=== PATIENT | male | born 1965 | race Caucasian/White ===

== ENCOUNTER 2017-10-28 19:23 | Observation (INO) | payer SELFPAY ==
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
[2017-10-28] MEDS ORDERED: NITRO-BID 2% UD PACKETS TOP ONE (19:34)
[2017-10-28] MEDS ORDERED: NITRO-BID 2% UD PACKETS ONE (19:41)
[2017-10-28] MEDS ORDERED: Sodium Chloride 0.9% 1000 ML 1,000 ML ONE ×2 (19:42→21:14)
[2017-10-28] MEDS ORDERED: Sodium Chloride 0.9% 1000 ML 1,000 ML IV SCH (19:45)
[2017-10-28 19:54] LABS: Lactic Acid 4.5 (0.4-2.0)
[2017-10-28] MEDS ORDERED: Ativan 1 MG PO ONE ×3 (19:59→22:20)
[2017-10-28 20:00] LABS: BASOPHIL % 0.2 % (0.0-0.4); Basophil (Absolute #) 0.01 (0-0.4); Eosinophil % 0.9 % (0.00-5.0); Eosinophil (Absolute #) 0.05 (0-0.5); Granulocyte Absolute (ANC) 3.06 (1.4-6.9); Granulocytes % 56.8 % (36.0-66.0); Hematocrit 44.1 % (42-50); Hemoglobin 14.8 gm/dl (12.5-18.0); Lymphocyte (Absolute #) 1.93 (1.0-4.6); Lymphocytes % 35.8 % (24.0-44.0); Mean Cell Volume 84.2 fl (78-100); Mean Corpuscular Hemoglobin 28.2 pg (26-32); Mean Corpuscular Hgb Concent. 33.6 g/dl (32-36); Mean Platelet Volume 9.6 fl (6-9.5); Monocyte (Absolute #) 0.34 (0.0-1.3); Monocytes % 6.3 % (0.0-12.0); Platelet Count 275 K/mm3 (150-450); Red Blood Count 5.24 M/mm3 (4.1-5.6); Red Cell Distribution Width 14.9 % (11.5-14.0); White Blood Count 5.4 K/mm3 (4.0-10.5)
[2017-10-28] MEDS ORDERED: PROTONIX 40 MG IV IV ONE ×2 (20:01→20:13)
[2017-10-28] MEDS ORDERED: Sodium Chloride 0.9% 1000 ML 1,000 ML IV STA (20:01)
[2017-10-28] MEDS ORDERED: Pepcid 20 MG VIAL IV ONE ×2 (20:02→20:13)
[2017-10-28] MEDS ORDERED: Ativan 1 MG ONE ×2 (20:13→22:19)
[2017-10-28 20:19] LABS: ALBUMIN 3.9 g/dL (3.4-5.0); ALKALINE PHOSPHATASE 69 U/L (46-116); AMYLASE 55 U/L (25-115); ANION GAP 23.7 MEQ/L (5-15); BLOOD UREA NITROGEN 8 mg/dL (9-20); CHLORIDE 105 mEq/L (98-107); CK-Creatinine Phosphokinase 100 U/L (39-308); Calcium 8.6 mg/dL (8.5-10.1); Creatinine 1 0.97 mg/dl (0.55-1.30); EST GLOMERULAR FILTRATION RATE > 60 ML/MIN; Glucose 108 MG/DL (70-110); LIPASE 98 U/L (73-393); MAGNESIUM 1.8 mg/dL (1.8-2.4); NT PRO BNP 13 pg/ml (0-125); Potassium 3.4 mEq/L (3.5-5.1); SGOT/AST 23 U/L (15-37); SGPT/ALT 34 U/L (12-78); SODIUM 144 mEq/L (136-145); Total Protein 8.3 gm/dL (6.4-8.2)
[2017-10-28 20:24] LABS: SALICYLATE < 2.8 mg/dl (2.8-20.0); TSH, 3RD Generation 0.352 mIU/L (0.358-3.740)
[2017-10-28] MEDS ORDERED: MORPHINE SULFATE 10 MG/ML IV ONE ×2 (20:25→23:22)
[2017-10-28 20:26] LABS: ACETAMINOPHEN < 2.0 ug/ml (10-30); TROPONIN < 0.017 ng/ml (0.000-0.056)
[2017-10-28] MEDS ORDERED: BENADRYL 50 MG/ML IV ONE ×2 (20:26→23:23)
[2017-10-28] MEDS ORDERED: BENADRYL 50 MG/ML ONE ×2 (20:36→23:31)
[2017-10-28] MEDS ORDERED: MORPHINE SULFATE 10 MG/ML ONE ×2 (20:36→23:32)
[2017-10-28] MEDS ORDERED: Ativan 2 MG/1 ML VIAL ONE (22:17)
[2017-10-28 22:58] LABS: Lactic Acid 4.3 (0.4-2.0)
[2017-10-28 23:23] LABS: Amphetamine,Urine NEG. (NEGATIVE); Barbiturate,Urine NEG. (NEGATIVE); Benzodiazepine,Urine NEG. (NEGATIVE); Cocaine,Urine NEG. (NEGATIVE); Methadone,Urine NEG. (NEGATIVE); Opiate,Urine POS. (NEGATIVE); PCP,Urine NEG. (NEGATIVE); THC,Urine NEG. (NEGATIVE)
[2017-10-28 23:26] LABS: Appearance CLEAR (CLEAR); Bacteria FEW /HPF (NEGATIVE); Bilirubin NEGATIVE (NEGATIVE); Blood 50 Ery/ul (0-5); Epithelial Cells RARE /HPF (FEW); Glucose NEGATIVE (NEGATIVE); Ketones NEGATIVE (NEGATIVE); Leukocyte Esterase NEGATIVE (NEGATIVE); Mucus SLIGHT /HPF (NEGATIVE); Nitrite NEGATIVE (NEGATIVE); Protein,Urine Dip TRACE (Negative); Specific Gravity 1.005 (1.005-1.025); Urobilinogen NORMAL mg/dL (0-1); WBC 0-2 /HPF (0-5)
[2017-10-29] MEDS ORDERED: MILK OF MAGNESIA 30 ML PO PRN (00:59)
[2017-10-29] MEDS ORDERED: NovoLIN R SQ PRN (00:59)
[2017-10-29] MEDS ORDERED: Ativan 1 MG PO PRN (00:59)
[2017-10-29] MEDS ORDERED: Zofran 4 MG/2 ML VIAL IV PRN ×2 (00:59)
[2017-10-29] MEDS ORDERED: Senokot-S Tablet PO PRN (00:59)
[2017-10-29] MEDS ORDERED: MAALOX ES 30 ML UNIT DOSE PO PRN (00:59)
[2017-10-29] MEDS ORDERED: MORPHINE SULFATE 2 MG INJ IV PRN (00:59)
[2017-10-29] MEDS ORDERED: TYLENOL 325 MG PO PRN (00:59)
[2017-10-29] MEDS ORDERED: MORPHINE SULFATE 10 MG/ML IV PRN (01:37)
[2017-10-29] MEDS: MORPHINE SULFATE 2 MG INJ IV PRN ×2 (03:02→05:13)
[2017-10-29 05:36] LABS: Lactic Acid 3.3 (0.4-2.0)
[2017-10-29 05:53] LABS: ALBUMIN 3.7 g/dL (3.4-5.0); ALKALINE PHOSPHATASE 62 U/L (46-116); ANION GAP 18.6 MEQ/L (5-15); BLOOD UREA NITROGEN 8 mg/dL (9-20); CHLORIDE 104 mEq/L (98-107); Calcium 7.8 mg/dL (8.5-10.1); Carbon Dioxide 22.6 mEq/L (21-32); Cholesterol 200 mg/dL (100-200); Creatinine 1 0.97 mg/dl (0.55-1.30); EST GLOMERULAR FILTRATION RATE > 60 ML/MIN; Glucose 106 MG/DL (70-110); HDL CHOLESTEROL 37 mg/dL (35-60); LDL, DIRECT 108 mg/dL (5-99); Potassium 3.9 mEq/L (3.5-5.1); Risk Ratio 5.4; SGOT/AST 19 U/L (15-37); SGPT/ALT 31 U/L (12-78); SODIUM 141 mEq/L (136-145); TRIGLYCERIDE 372 mg/dL (30-200); Total Protein 7.4 gm/dL (6.4-8.2)
[2017-10-29 06:03] LABS: BASOPHIL % 0.1 % (0.0-0.4); Basophil (Absolute #) 0.01 (0-0.4); Eosinophil % 0.5 % (0.00-5.0); Eosinophil (Absolute #) 0.04 (0-0.5); Granulocyte Absolute (ANC) 5.68 (1.4-6.9); Granulocytes % 72.4 % (36.0-66.0); Hematocrit 39.5 % (42-50); Hemoglobin 12.7 gm/dl (12.5-18.0); Lymphocyte (Absolute #) 1.47 (1.0-4.6); Lymphocytes % 18.7 % (24.0-44.0); Mean Cell Volume 86.8 fl (78-100); Mean Corpuscular Hemoglobin 27.9 pg (26-32); Mean Corpuscular Hgb Concent. 32.2 g/dl (32-36); Mean Platelet Volume 9.6 fl (6-9.5); Monocyte (Absolute #) 0.65 (0.0-1.3); Monocytes % 8.3 % (0.0-12.0); Platelet Count 214 K/mm3 (150-450); Red Blood Count 4.55 M/mm3 (4.1-5.6); White Blood Count 7.9 K/mm3 (4.0-10.5)
[2017-10-29] MEDS ORDERED: MORPHINE SULFATE 4 MG INJ IV PRN (08:46)
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
--- NOTE | 2017-10-29 09:14 | XRAY ---
Indication: Chest pain and short of breath. Elevated d-dimer. Multiple contiguous axial images obtained through the chest using 80 cc Isovue 370 contrast and PE protocol. Comparison: None There is satisfactory opacification of the pulmonary arteries. No filling defect or pulmonary embolus. Heart is not enlarged. Aorta is normal in course and caliber. No pathologic mediastinal/hilar lymphadenopathy. Small hiatal hernia. Examination of the lung parenchyma demonstrates mild/moderate bilateral dependent atelectasis. No suspicious pulmonary mass, infiltrate, consolidation, or effusion. Bony thorax intact. Limited upper abdomen demonstrates fatty liver and cholecystectomy clips. Impression: 1. Negative pulmonary embolus. No acute cardiopulmonary abnormalities. 2. Fatty liver and small hiatal hernia. Comment: Preliminary interpretation was made by [facility]. No critical discrepancy. CT DI 28.05
--- NOTE | 2017-10-29 09:24 | XRAY ---
Indication: Amnesia. Blood in right ear canal. No known injury. Multiple contiguous axial images obtained through the head without contrast. Comparison: None Normal appearing brain parenchyma, ventricles, and bony calvarium. Visualized paranasal sinuses are clear. Minimal opacification of the inferior right mastoid air cells. Left mastoid air cells clear. Impression: 1. Partial opacification of the right mastoid air cells presumed inflammatory. 2. Remaining CT head without contrast exam is negative. Comment: Preliminary interpretation was made by [facility]. No critical discrepancy. CT DI 50.97
[2017-10-29] MEDS ORDERED: Pepcid 20 MG VIAL IV SCH (10:00)
[2017-10-29] MEDS ORDERED: ECOTRIN 81 MG PO SCH (10:00)
[2017-10-29] MEDS ORDERED: Ecotrin 325 MG PO SCH (10:00)
[2017-10-29 11:28] VITALS: BP 124/79; PULSE 81; O2SAT 97
--- NOTE | 2017-10-29 12:30 | PCM.DCORD ---
- Discharge Discharge Date: 10/29/17 Disposition: Home, Self-Care Condition: Good Prescriptions: New Atorvastatin Calcium 40 mg PO DAILY #30 tablet Carvedilol 12.5 mg [Coreg 12.5 mg] 12.5 mg PO BID #60 tablet Multivitamin [Daily Multivitamin] 1 each PO DAILY #30 tablet Clopidogrel Bisulfate 75 mg [PLAVIX 75 MG Tablet] 75 mg PO DAILY #30 tablet Cyanocobalamin/Folic Acid [Ra Vit B-12 1,000 Mcg Lozenge] 1 each SL DAILY # 30 lozenge Thiamine HCl 100 mg [Vitamin B-1 100 mg] 100 mg PO DAILY #30 tablet Continue Aspirin EC 81 mg [Ecotrin 81 mg] 81 mg PO DAILY #30 tablet.ec Additional Instructions: Your current pain does not appear to be related to your heart or lungs. The CT of the chest showed no blood clots. EKG showed no evidence of "heart attack" and blood work did not show any evidence of heart damage. On review of most recent hospital records from [facility] [place] [facility] [place] Your pain today is consistent with your previous hospitalizations that have had extensive evaluation and we will place you back on the medications they recommended and recommend you follow up with the neurologist who was following you there as recommended at that discharge Dr. Mittal. Please establish care with a regular family physician to help your prison treatment. Do not use alcohol as this can exacerbate any neurological or heart findings as alcohol is a direct toxin to your nerves and your heart. Follow up with: Presley Mittal [Other] - 1 Week
== END 2017-10-29 13:45 | disposition home or self-care (01) ==
LOC: ED 19:23 → MED SURG 10-29 00:53
PROVIDERS: ADMIT Family Medicine; ATTEND Family Medicine
DX: F10.129 Alcohol abuse with intoxication, unspecified (principal); R07.9 Chest pain, unspecified
CPT/HCPCS: 36415; 70450; 71260; 80053; 80061; 80307; 81000; 82150; 82550; 83605; 83690; 83721; 83735; 83880; 84443; 84484; 85025; 85379; 87086; 93005; 93041; 93268; 96360; 96361; 96374; 96375; 96376; 99285; G0378; G0481; J1200; J2060; J2270; A9270-GY